=== PATIENT | male | born 1985 | race Caucasian/White ===

== ENCOUNTER 2021-10-30 11:03 | Outpatient (CLI) | payer BC, SELFPAY ==
--- NOTE | ~2021-10-30 | US_ITS ---
EXAMINATION: US venous doppler [facility] DATE: 10/30/2021 12:19 INDICATION: Acute left lower limb deep vein thrombosis. TECHNIQUE: Grayscale ultrasound images without and with compression and Doppler ultrasound images of the left lower extremity veins were obtained. COMPARISON: None. FINDINGS: The visualized portions of left common femoral vein, profunda (deep) femoral vein, popliteal vein, pe roneal veins, posterior tibial veins, and greater saphenous vein outflow are patent. There is nonoccl usive thrombus in left femoral vein. IMPRESSION: 1. Deep vein thrombosis involving left femoral vein. Reviewed, dictated and finalized at location A. RANS CONTACT REPRESENTATIVE
== END 2021-10-30 11:04 | disposition home or self-care (01) ==
PROVIDERS: PCP Family Medicine; Visit Provider Family Medicine
DX: I82.412 Acute embolism and thrombosis of left femoral vein (principal)
CPT/HCPCS: 93971

== ENCOUNTER → 2022-10-13 08:15 | Outpatient (CLI) | payer BC, SELFPAY ==
--- NOTE | ~2022-10-13 | US_ITS ---
Duplex Sonography of the left extremity: Indication: Pain, history of prior DVT Sagittal and transverse B-mode images as well as color-flow imaging were performed on the left femora l and popliteal veins. B-mode examination was done without and with compression in the transverse pl ane. There is good visualization of the common femoral, proximal profunda femoral, superficial femor al, greater saphenous, and popliteal veins. Normal flow was seen on color-flow imaging. Normal compr essibility was demonstrated. Left peroneal, posterior tibial, and gastrocnemius veins also demonstrate normal flow and compressibi lity. The contralateral common femoral vein was evaluated for comparison, and demonstrated normal flow and compressibility. Impression: No evidence of left lower extremity DVT. Reviewed, dictated and finalized at location . [employer] Impression: No evidence of left lower extremity DVT.
== END ==
PROVIDERS: PCP Family Medicine; Visit Provider Family Medicine
DX: Z86.718 Personal history of other venous thrombosis and embolism (principal); M79.662 Pain in left lower leg
CPT/HCPCS: 93971